=== PATIENT | female | born 1975 ===

== ENCOUNTER 2020-12-17 08:00 | Outpatient (CLI) | payer OTHER | END 2020-12-17 09:43 | disposition home or self-care (01) | LOC: SONOGRAMA 08:00 | PROVIDERS: ATTEND Pathology Anatomic Pathology & Clinical Pathology | DX: D34 Benign neoplasm of thyroid gland (principal); E04.8 Other specified nontoxic goiter; E04.1 Nontoxic single thyroid nodule ==

== ENCOUNTER 2022-07-31 09:47 | Inpatient (IN) | payer OTHER ==
[~2022-07-31] VITALS: Ht 160 cm; Wt 59.9 kg
[2022-08-01] MEDS ORDERED: LEVO-T50 MCG PO (12:21)
[2022-08-01] MEDS ORDERED: VITAMIN D PO (12:22)
[2022-08-01] MEDS ORDERED: VIT B PO (12:22)
[2022-08-07] MEDS ORDERED: B COMPLEX1 EACH (13:06)
[2022-08-07] MEDS ORDERED: VITAMIN D310 MC1 (13:06)
[2022-08-10] MEDS ORDERED: ACETAMINOPHEN500 M2 PO (13:20)
[2022-08-10] MEDS ORDERED: NEURONTIN300 MG PO (13:20)
== END 2022-08-10 13:48 | disposition home or self-care (01) | DRG 330 ==
LOC: SURH 08-07 11:15 → O/R 08-07 11:37 → SURH 08-07 17:00
PROVIDERS: ADMIT Surgery; ATTEND Surgery
PROC: 0DBP4ZZ Excision of Rectum, Percutaneous Endoscopic Approach (ICD-10-PCS; 2022-08-07)
PROC: 0DTJ4ZZ Resection of Appendix, Percutaneous Endoscopic Approach (ICD-10-PCS; 2022-08-07)
PROC: 0DTN4ZZ Resection of Sigmoid Colon, Percutaneous Endoscopic Approach (ICD-10-PCS; principal; 2022-08-07 19:45)
DX: K57.20 Diverticulitis of large intestine with perforation and abscess without bleeding (principal); A09 Infectious gastroenteritis and colitis, unspecified; R19.4 Change in bowel habit